=== PATIENT | male | born 1980 | race Two or more races ===

== ENCOUNTER 2017-12-26 16:05 | Emergency (ER) | payer OTHER ==
[~2017-12-26] VITALS: Ht 172.7 cm; Wt 88.0 kg
[2017-12-26 16:25] VITALS: BP 139/87
[2017-12-26] MEDS ORDERED: MORPHINE SULFATE 4 MG/ML DISP.SYRIN. IM ONE (16:45)
[2017-12-26] MEDS ORDERED: CYCLOBENZAPRINE 10 MG TABLET. PO ONE (16:45)
--- NOTE | 2017-12-26 17:08 | RAD ---
HIP LEFT 2V WITH PELVIS Clinical Indication: LT HIP PAIN UNABLE TO BEAR WEIGHT Comparison: None. Findings: There is a 6 mm bone fragment that is just superior to the superior margin of the femoral neck. A donor site is not identified. There is no acute pelvic fracture. The hip joints are symmetric. No acute fracture of the proximal femur is identified. Question transitional lumbosacral anatomy. A few phleboliths in the pelvis. IMPRESSION: 1. No acute hip fracture. 2. Tiny bone fragment superior to the femoral neck. A donor site is not identified. Electronically signed by: Tae Kirkland MD (12/26/2017 5:05 PM) [facility]
[2017-12-26] MEDS ORDERED: HYDR-971 PO (17:53)
[2017-12-26] MEDS ORDERED: METH4TAB2 PO (17:53)
--- NOTE | 2017-12-26 17:53 | PHYS DOC ---
Past History Past Medical History: Hypertension Past Surgical History: Tonsillectomy Alcohol Use: None Drug Use: None Adult General Chief Complaint Chief Complaint: back pain HPI HPI Patient is a 37 year old male who presents with complaining of left hip pain for the last 5 days. Patient states he was limping after 2 miles running like his daily usual activity and the next day he missed a step and landed on his left side and since then has constant pain in lateral side of left hip with radiation to posterior of left thigh without focal neuro deficit. Patient said the pain getting worse with walking and bearing weight. He denies focal neuro deficit, urine and bowel incontinence, fever and chills, nausea and vomiting, history of back pain or same pain. Review of Systems Review of Systems Constitutional: Denies fever or chills [] Eyes: Denies change in visual acuity, redness, or eye pain [] HENT: Denies nasal congestion or sore throat [] Respiratory: Denies cough or shortness of breath [] Cardiovascular: No additional information not addressed in HPI [] GI: Denies abdominal pain, nausea, vomiting, bloody stools or diarrhea [] : Denies dysuria or hematuria [] Musculoskeletal: Denies back pain or joint pain [] Integument: Denies rash or skin lesions [] Neurologic: Denies headache, focal weakness or sensory changes [] Endocrine: Denies polyuria or polydipsia [] All other systems were reviewed and found to be within normal limits, except as documented in this note. Current Medications Current Medications Current Medications Medications (Trade) Dose Ordered Sig/[facility] Start Time Stop Time Status Last Admin Dose Admin Cyclobenzaprine HCl (Flexeril) 10 mg 1X ONCE 12/26/17 16:45 12/26/17 16:54 DC 12/26/17 17:01 10 MG Morphine Sulfate (Morphine 4mg Syringe) 4 mg 1X ONCE 12/26/17 16:45 12/26/17 16:54 DC 12/26/17 17:02 4 MG Allergies Allergies Allergies Coded Allergies Type Severity Reaction Last Updated Verified No Known Drug Allergies 12/26/17 No Physical Exam Physical Exam Constitutional: Well developed, well nourished, moderate distress, non-toxic appearance. [] HENT: Normocephalic, atraumatic, Neck: Normal range of motion, no tenderness, supple, no stridor. [] Cardiovascular:Heart rate regular rhythm, no murmur [] Lungs & Thorax: Bilateral breath sounds clear to auscultation [] Abdomen: Bowel sounds normal, soft, no tenderness, no masses, no pulsatile masses. [] Skin: Warm, dry, no erythema, no rash. [] Back: No midline tenderness, range of motion no CVA tenderness. [] Extremities: Left hip without deformity, painful range of motion, no cyanosis, no clubbing, ROM intact, no edema. [] Neurologic: Alert and oriented X 3, normal motor function, normal sensory function, no focal deficits noted. [] Psychologic: Affect normal, judgement normal, mood normal. [] Current Patient Data Vital Signs Vital Signs Date Time Temp Pulse Resp B/P (MAP) Pulse Ox O2 Delivery O2 Flow Rate FiO2 12/26/17 17:02 16 98 Room Air 12/26/17 16:25 98.3 60 EKG EKG [] Radiology/Procedures Radiology/[place] [address] IMAGING REPORT Signed PATIENT: MARTHA SEGAL ACCOUNT: [id number] : 1980 LOCATION: ER AGE: 37 SEX: M EXAM STATUS: PRE ER ORD. PHYSICIAN: YARELY FERREIRA MD REASON: pain PROCEDURE: HIP LEFT 2V WITH PELVIS HIP LEFT 2V WITH PELVIS Clinical Indication: LT HIP PAIN UNABLE TO BEAR WEIGHT Comparison: None. Findings: There is a 6 mm bone fragment that is just superior to the superior margin of the femoral neck. A donor site is not identified. There is no acute pelvic fracture. The hip joints are symmetric. No acute fracture of the proximal femur is identified. Question transitional lumbosacral anatomy. A few phleboliths in the pelvis. IMPRESSION: 1. No acute hip fracture. 2. Tiny bone fragment superior to the femoral neck. A donor site is not identified. Electronically signed by: Tae Kirkland MD (12/26/2017 5:05 PM) [facility] DICTATED AND SIGNED BY: TAE KIRKLAND MD DATE: 12/26/17 1866 CC: BROOKLYN MONROE PA-C; YARELY FERREIRA MD ~ Course & Med Decision Making Course & Med Decision Making Pertinent Imaging studies reviewed. (See chart for details) discharge: I've spoken with the patient and/or caregivers. I've explained the patient's condition, diagnosis and treatment plan based on information available to me at this time. I've answered the patient's and/or caregivers questions and addressed any concerns. The patient and/or caregivers have a good understanding the patient's diagnosis, condition and treatment plan as can be expected at this point. Vital signs have been stabilized. The patient's condition is stable for discharge from the emergency department. The patient will pursue further outpatient evaluation with her primary care provider or other designated consulting physician as outlined in the discharge instructions. Patient and/or caregivers are agreeable to this plan of care and follow-up instructions have been explained in detail. The patient and/or caregivers have received these instructions in written format and expressed understanding of these discharge instructions. The patient and her caregivers are aware that if any significant change in condition or worsening of symptoms should prompt him to immediately return to this of the closest emergency department. If an emergent department is not readily available I would encourage him to call 911. Dragon Disclaimer Dragon Disclaimer This electronic medical record was generated, in whole or in part, using a voice recognition dictation system. Departure Departure: Impression: Primary Impression: Sciatic radiculitis Disposition: HOME, SELF-CARE (at 1750) Condition: IMPROVED Referrals: BROOKLYN MONROE PA-C (PCP) Patient Instructions: Sciatica Additional Instructions: Apply ice on your back Follow-up with your primary care physician in 3-5 days Return to ER if not getting better Continue home muscle relaxant Scripts Methylprednisolone (MEDROL) 4 Mg Tab.ds.pk 1 PKG PO UD, #1 PKG Prov: YARELY FERREIRA MD 12/26/17 Hydrocodone Bit/Acetaminophen (NORCO 5-325 TABLET) 1 Each Tablet 1 TAB PO PRN Q6HRS PRN for PAIN, #14 TAB 0 Refills Prov: YARELY FERREIRA MD 12/26/17 YARELY FERREIRA MD Dec 26, 2017 17:53
[2017-12-26] MEDS ORDERED: ACETAMINOPHEN/CODEINE 300/30MG 4TABLET STARTPACK. PO ONE (18:00)
[2017-12-26] MEDS ORDERED: ACETAMINOPHEN PO ONE (18:00)
[2017-12-26] MEDS ORDERED: CODEINE PO ONE (18:00)
== END 2017-12-26 18:21 | disposition home or self-care (01) ==
LOC: ER 16:05
DX: M54.16 Radiculopathy, lumbar region (principal); M54.41 Lumbago with sciatica, right side; I10 Essential (primary) hypertension
CPT/HCPCS: 73502; 96372; 99284; J2270

== ENCOUNTER 2020-02-17 14:51 | Emergency (ER) | payer OTHER ==
[~2020-02-17] VITALS: Ht 175.3 cm; Wt 92.1 kg
[2020-02-17 14:51] VITALS: BP 165/94
[~2020-02-17 14:51] MED LIST: HYDR-3165 PO; METH4TAB2 PO
--- NOTE | 2020-02-17 14:55 | PHYS DOC ---
Past History Past Medical History: Hypertension Past Surgical History: Tonsillectomy Alcohol Use: None Drug Use: None Adult General HPI HPI Patient is a 39-year-old male who presents with left thumb injury. Injury onset was right before arrival, states he was trying to extravasate from car when when shot his car door on his left hyperthenar eminence. Patient admits acute focal pain without any cracks or pops noted. Reports he has had decreased range of motion due to pain but otherwise motor and sensory function intact, no other neurologic symptoms present. He has history of high blood pressure and GERD at this time without any other comorbidities, not currently on blood thinners Review of Systems Review of Systems Fourteen body systems of review of systems have been reviewed. See HPI for pertinent positives and negative responses, other torres all other systems are negative, non-pertinent or non-contributory Allergies Allergies Allergies Coded Allergies Type Severity Reaction Last Updated Verified No Known Drug Allergies 12/26/17 No Physical Exam Physical Exam Constitutional: Well developed, well nourished, no acute distress, non-toxic appearance. HENT: Normocephalic, atraumatic, bilateral external ears normal, oropharynx moist, no oral exudates, nose normal. Eyes: PERRLA, EOMI, conjunctiva normal, no discharge. Neck: Normal range of motion, no tenderness, supple, no stridor. Cardiovascular: Heart rate regular, sinus rhythm, no murmurs rubs or gallops Lungs & Thorax: Bilateral breath sounds clear to auscultation Abdomen: Bowel sounds normal, soft, no tenderness, no masses, no pulsatile masses. Nonsurgical abdomen, no peritoneal signs Skin: Warm, dry, no erythema, no rash. Back: No tenderness, no CVA tenderness. Extremities: No cyanosis, no clubbing, ROM intact, no edema. Bilateral hands unless otherwise noted: Sensation: SILT in FF/IF dorsal, proximal (radial), SF tip (ulnar), IF volar tip (median) Motor: + Thumbs Up (radial), OK sign (median), X with 2nd 3rd fingers (ulnar) Flexion & Extension 1-5 against resistance, Wrist/finger extension off table (radial), Finger AB/AD-duction (ulnar), Thumb to pinky (median). Isolation of each digit Compartment soft, mild soft tissue edema noted to left hyperthenar eminence, small blood collection on proximal portion of nail bed matrix without any other abnormalities, cap refill less than 3 seconds bilaterally with 2+ radial pulses bilaterally Neurologic: Alert and oriented X 3, grossly normal motor & sensory function, no focal deficits noted. Psychologic: Affect normal, judgement normal, mood normal. EKG EKG [] Radiology/Procedures Radiology/Procedures EXAM: WRIST 3V LEFT, HAND LEFT 3V 02/17/2020 3:08 PM CLINICAL INDICATION:Left thumb crush injury, left scaphoid pain COMPARISON:None TECHNIQUE:3 views of the left hand, 3 views of the left wrist FINDINGS: Left hand: No acute fracture. Alignment is normal. Joint spaces are maintained. Soft tissue is normal. Left wrist: No acute fracture. Alignment is normal. Joint spaces are maintained. No soft tissue abnormality. IMPRESSION:No acute osseous abnormality of the left hand or wrist. Electronically signed by: Nely Meneses MD (02/17/2020 4:05 PM) [id number] Heart Score Risk Factors: Risk Factors: DM, Current or recent (<one month) smoker, HTN, HLP, family history of CAD, obesity. Risk Scores: Risk Factors: DM, Current or recent (<one month) smoker, HTN, HLP, family history of CAD, obesity. Course & Med Decision Making Course & Med Decision Making Pertinent Labs and Imaging studies reviewed. (See chart for details) Discussed most likely diagnosis of contusion to left hand. Discussed role of supportive care extensively with patient and need for close outpatient follow- up. No indication for further intervention and/or work-up in ER setting Patient was advised and educated on importance of close outpatient follow-up. I advised them to call primary care physician as soon as possible to discuss following up in outpatient setting after ER departure for repeat examination and evaluation. Strict return precautions were discussed at length with good understanding by patient who is able to restate plan and concerning signs or symptoms that should prompt immediate medical attention. All questions and concerns addressed prior to ER departure Rody Disclaimer Dragon Disclaimer This electronic medical record was generated, in whole or in part, using a voice recognition dictation system. Departure Departure: Impression: Primary Impression: Contusion of left thumb with damage to nail Disposition: 01 DC HOME SELF CARE/HOMELESS Condition: STABLE Referrals: SHARAN KAHN DO (PCP) Patient Instructions: Contusion, RICE - Routine Care for Injuries Additional Instructions: As discussed prior to ER departure, please call your primary care physician to schedule outpatient follow-up in upcoming 2 to 10 days time for repeat examination You were diagnosed with left thumb contusion. Please continue to provide supportive care to your left thumb, take NSAIDs and/or Tylenol for pain. Continue to ice at least 3 times daily to aid in healing If any concerning signs or symptoms present prior to outpatient follow-up please do not hesitate to come back for repeat evaluation It was a pleasure to take care of you and I wish you a speedy recovery! Scripts Hydrocodone Bit/Acetaminophen (NORCO 5-325 TABLET) 1 Each Tablet 1 TAB PO PRN Q6HRS PRN for PAIN, #7 TAB 0 Refills Prov: NANCY RAMIREZ DO 02/17/20 NANCY RAMIREZ DO Feb 17, 2020 14:55
[2020-02-17] MEDS ORDERED: ACETAMINOPHEN 325 MG TABLET PO ONE (15:15)
--- NOTE | 2020-02-17 16:08 | RAD ---
EXAM: WRIST 3V LEFT, HAND LEFT 3V 02/17/2020 3:08 PM CLINICAL INDICATION:Left thumb crush injury, left scaphoid pain COMPARISON:None TECHNIQUE:3 views of the left hand, 3 views of the left wrist FINDINGS: Left hand: No acute fracture. Alignment is normal. Joint spaces are maintained. Soft tissue is normal. Left wrist: No acute fracture. Alignment is normal. Joint spaces are maintained. No soft tissue abnormality. IMPRESSION:No acute osseous abnormality of the left hand or wrist. Electronically signed by: Nely Meneses MD (02/17/2020 4:05 PM) [id number]
[2020-02-17] MEDS ORDERED: HYDROcodone/APAP 5/325MG 1 TAB TABLET PO ONE (16:15)
[2020-02-17] MEDS ORDERED: HYDR-3165 PO (16:15)
== END 2020-02-17 16:40 | disposition home or self-care (01) ==
LOC: ER 14:51
DX: S60.112A Contusion of left thumb with damage to nail, initial encounter (principal); I10 Essential (primary) hypertension; K21.9 Gastro-esophageal reflux disease without esophagitis; W23.0XXA Caught, crushed, jammed, or pinched between moving objects, initial encounter; Y93.89 Activity, other specified; Y92.89 Other specified places as the place of occurrence of the external cause; Y99.8 Other external cause status
CPT/HCPCS: 73110; 73130; 99284